=== PATIENT | female | born 1935 | race Caucasian/White ===

== ENCOUNTER 2019-08-21 15:38 | Emergency (ER) | payer MEDICARE, MEDICAID ==
[~2019-08-21] VITALS: Ht 162.6 cm; Wt 68.0 kg
--- NOTE | 2019-08-21 15:42 | NUR ---
PT ARRIVED TO ER WITH [facility]. PT C/O IS CONFUSION, HYPERTENSION, HEADACHE, VOMITING. PT PRESENTED WITH STROKE SYMPTOMS: DROOLING, SLURRED SPEECH, AND CONFUSION SINCE AM TODAY. A&O X1. RR EVEN AND UNLABORED. PT CALM AND COORPORATIVE. POSITION FOR COMFORT. PLACED ON TAXICAB DISPATCHER, O2 SAT, AND BP CUFF. WILL CONTINUE TO MONITOR. PMHX: HTN, DM2, CHASE, HYPERLIPIDEMIA ALLERGIES: PENICILLIN
--- NOTE | 2019-08-21 15:42 | NUR ---
PT WHEELED TO BED 12 BY SON.
[2019-08-21 15:47] VITALS: BP 252/125
--- NOTE | 2019-08-21 15:54 | NUR ---
Dr. Pearson is evaluating the patient at bedside.
[2019-08-21] MEDS ORDERED: hydrALAZINE 20 MG/ML VIAL IVP ONE (15:55)
[2019-08-21] MEDS ORDERED: ONDANSETRON 4 MG/2 ML VIAL IVP ONE (15:55)
--- NOTE | 2019-08-21 15:56 | NUR ---
Called code brain.
--- NOTE | 2019-08-21 16:03 | NUR ---
[facility] [facility]
[2019-08-21 16:17] LABS: BASOPHILS # (AUTO) 0.1 K/uL (0.00-0.22); BASOPHILS % (AUTO) 0.7 % (0.0-2.0); EOSINOPHILS # (AUTO) 0.2 K/uL (0-0.4); EOSINOPHILS % (AUTO) 1.6 % (0.0-4.0); HEMATOCRIT 40.7 % (36-48); HEMOGLOBIN 13.4 g/dL (12.0-16.0); LYMPHOCYTES # (AUTO) 2.5 K/uL (2.5-16.5); LYMPHOCYTES % (AUTO) 22.5 % (20.5-51.1); MEAN CORPUSCULAR HEMOGLOBIN 28 pg (27-31); MEAN CORPUSCULAR HGB CONC 33 g/dL (33-37); MEAN CORPUSCULAR VOLUME 83.2 fL (80-94); MONOCYTES % (AUTO) 9.1 % (1.7-9.3); NEUTROPHILS # (AUTO) 7.5 K/uL (1.8-7.7); NEUTROPHILS % (AUTO) 66.1 % (42.2-75.2); PLATELET COUNT (AUTO) 243 K/uL (140-450); RED BLOOD CELL COUNT(AUTO) 4.89 MIL/uL (4.20-5.40); RED CELL DISTRIBUTION WIDTH 13.9 % (11.6-13.7); WHITE BLOOD COUNT (AUTO) 11.3 K/uL (4.8-10.8)
[2019-08-21] MEDS ORDERED: MECL-303 PO (16:25)
[2019-08-21] MEDS ORDERED: IBUP-1842 PO (16:25)
[2019-08-21] MEDS ORDERED: NACL 0.9% 1,000 ML IV ONE (16:25)
[2019-08-21] MEDS ORDERED: CARV25TA PO (16:25)
[2019-08-21] MEDS ORDERED: LABETALOL 100 MG/20 ML VIAL IVP ONE (16:25)
[2019-08-21 16:28] LABS: ALBUMIN 3.4 g/dL (3.4-5.0); ANION GAP 13.3 (8-16); ASPARTATE AMINOTRANSFERASE 18 U/L (15-37); CARBON DIOXIDE 30.7 mmol/L (21-32); CHLORIDE 101 mmol/L (98-107); CREATININE 0.9 mg/dL (0.6-1.3); GLUCOSE 114 mg/dL (74-106); SODIUM SERUM 141 mmol/L (136-145); TOTAL BILIRUBIN 0.5 mg/dL (0.0-1.0); UREA NITROGEN, BLOOD 14 mg/dL (7-18)
--- NOTE | 2019-08-21 16:34 | NUR ---
STRAIGHT CATH PERFORMED, 300CC URINE COLLECTED AT THIS TIME. PT TOLERATED WELL
--- NOTE | 2019-08-21 16:38 | NUR ---
NEURO ASSESSMENT 83 Y/O F PRESENTS A/OX0, NON VERBAL, ALOC, UNABLE TO FOLLOW COMMANDS. PER FAMILY PT HX OF STROKE 3 YEARS AGO, PT PRESENTS WITH HIGH BLOOD PRESSURE, TAKEN TO CT FOR IMMEDIATE EVALUATION OF POSSIBLE CEREBRAL BLEED. CRANIAL NERVES II,III,IV,V,,VII,XII UNABLE TO ASSESS. PUPILS EQUAL REACTIVE TO LIGHT AT 2MM, PERRLA. NO SIGN OF ICP OR UNEQUAL PUPILS. NIHSS PER ASSESSMENT SCORED AT 16, MANY ITEMS ON THE NIHSS SCORE WERE UNABLE TO BE SCORED DUE TO ALOC. NO ASYMMETRY NOTED ON FACE, UNABLE TO HOLD UPPER EXTREMITIES >10 SECONDS, EXTREMITIES WILL FALL IMMEDIATELY TO BED, THERE IS MOVEMENT THEREFORE PATIENT SCORED 3 ON NIHSS AND LOWER EXTREMITIES SCORE A 3 UNABLE TO MAINTAIN >5 SECONDS BUT MOVEMENT PRESENT.
--- NOTE | 2019-08-21 16:40 | NUR ---
PT BEING TAKEN TO CT VIA [facility]
--- NOTE | 2019-08-21 16:40 | NUR ---
Patient taken to CT via gurney by kacie, accompanied by RN.
[2019-08-21 16:47] LABS: APPEARANCE,URINE CLEAR (CLEAR); BILIRUBIN,URINE NEGATIVE (NEGATIVE); BLOOD, URINE NEGATIVE (NEGATIVE); COLOR,URINE YELLOW (YELLOW); LEUKOCYTE ESTERASE ,URINE NEGATIVE (NEGATIVE); NITRITE, URINE POSITIVE (NEGATIVE); PH,URINE 6.5 (5.0-9.0); UGLUCOSE NEGATIVE (NEGATIVE)
--- NOTE | 2019-08-21 16:52 | NUR ---
Patient returned from CT scan. RN re-evaluating the patient at bedside.
--- NOTE | 2019-08-21 16:58 | NUR ---
PTS GRANDSON-- CALL FOR UPDATES KEIRY: [phone]
[2019-08-21 17:05] LABS: RBC,URINE 0-5 /HPF (0-5)
[2019-08-21] MEDS ORDERED: cefTRIAXone 1,000 MG VIAL ONE (17:09)
--- NOTE | 2019-08-21 18:29 | NUR ---
PT RESTING IN BED WITH EYES CLOSED. VISIBLE RISE AND FALL OF THE CHEST. AROUSABLE TO VOICE. REMAINS ON MONITOR. VSS. WILL CONTINUE TO MONITOR
[2019-08-21] MEDS ORDERED: NACL 0.9% 1,000 ML IV SCH (18:42)
[2019-08-21] MEDS ORDERED: ONDANSETRON 4 MG/2 ML VIAL IM/IVP PRN (18:45)
[2019-08-21] MEDS ORDERED: HYDROcodone/APAP 7.5/325 MG 1 TAB PO PRN (18:45)
[2019-08-21] MEDS ORDERED: DOCUSATE SODIUM 100 MG GELCAP PO PRN (18:45)
[2019-08-21] MEDS ORDERED: ACETAMINOPHEN 325 MG TAB PO PRN (18:45)
--- NOTE | 2019-08-21 19:25 | NUR ---
Dr. Blanco called and speaking with family in parking lot about AMA.
--- NOTE | 2019-08-21 19:26 | NUR ---
Pt report given to JUSTIN GRISSOM. Transfer of care at this time.
[2019-08-21 19:30] LABS: CHOL/HDL RATIO 3.5 (1-4.5); FREE T4 (FREE THYROXINE) 1.12 ng/dL (0.76-1.46); MAGNESIUM 1.4 mg/dL (1.8-2.4); PHOSPHORUS 3.5 mg/dL (2.5-4.9); THYROID STIMULATING HORMONE 3.07 uIU/mL (0.34-3.74)
--- NOTE | 2019-08-21 20:01 | NUR ---
PT RESTING IN BED, GRANDSON AT BEDSIDE. RR EVEN AND UNLABORED. ALL NEEDS MET AT THIS TIME. WILL CONTINUE TO MONITOR.
[2019-08-21 20:17] VITALS: BP 168/48
--- NOTE | 2019-08-21 20:17 | NUR ---
Patient does not wish to proceed with medical care recommended by DR. TIRADO. Patient given information related to possible complications, up to and including , which could occur as a result of leaving hospital at this time. Patient verbalizes understanding of risks involved leaving against medical advice. Patient has signed AMA form.
== END 2019-08-21 20:17 | disposition left against medical advice (07) ==
LOC: MED 15:38 → MTU 18:51 → UNDOADMIN 18:51 → MTU 20:17
DX: R11.2 Nausea with vomiting, unspecified (principal); E11.9 Type 2 diabetes mellitus without complications; I16.0 Hypertensive urgency; N39.0 Urinary tract infection, site not specified; R51 Headache; Z88.0 Allergy status to penicillin; Z95.0 Presence of cardiac pacemaker; Z79.899 Other long term (current) drug therapy; Z20.828 Contact with and (suspected) exposure to other viral communicable diseases
CPT/HCPCS: 36415; 70450; 70496; 70498; 71045; 80053; 80061; 81001; 82150; 83605; 83690; 83735; 83880; 84100; 84439; 84443; 84484; 85025; 85610; 85730; 86886; 86900; 86901; 87040; 87086; 93005; 96361; 96374; 99285; C9803; J0360; J0696; J2405; J3490; J7030; Q0092; Q9967; U0003; 96365; 96375